=== PATIENT | male | born 1980 | race African-American/Black ===

== ENCOUNTER 2018-12-14 22:08 | Emergency (ER) | payer OTHER ==
[2018-12-14] MEDS ORDERED: Lidocaine 1% PF 5 ML VIAL ONE (23:09)
--- NOTE | 2018-12-14 23:22 | RAD ---
RIGHT FINGER THREE VIEWS: History: Right finger pain. Fall. FINDINGS/IMPRESSION: There is dislocation of the PIP joint. There is a questionable fracture at the base of the middle pha lanx. POS: [facility]
== END 2018-12-14 23:52 | disposition home or self-care (01) ==
LOC: ERS 22:08
DX: S62.600A Fracture of unspecified phalanx of right index finger, initial encounter for closed fracture (principal); J45.909 Unspecified asthma, uncomplicated; W01.0XXA Fall on same level from slipping, tripping and stumbling without subsequent striking against object, initial encounter
CPT/HCPCS: J2001